=== PATIENT | male | born 1970 | race Hispanic/Latino ===

== ENCOUNTER 2022-11-07 08:35 | Emergency (ER) | payer SELFPAY ==
[2022-11-07] MEDS ORDERED: ASPIRIN 81 MG CHEWABLE TABLET ONE (09:24)
[2022-11-07 09:45] LABS: Hematocrit 44.7 % (39.6-49.0); Lymphocytes % 39.2 % (15.3-44.8); MCV 90.1 fL (80-100); MPV 8.9 fL (7.6-11.3); RBC Red Blood Cell Count 4.96 M/uL (4.33-5.43)
[2022-11-07 10:02] LABS: ALT/SGPT 27 U/L (16-61); AST/SGOT 15 U/L (15-37); Albumin 3.5 g/dL (3.4-5.0); Alkaline Phosphatase 131 U/L (45-117); BUN Blood Urea Nitrogen 8 mg/dL (7-18); Bicarbonate 25 mEq/L (21-32); Bilirubin Total 0.3 mg/dL (0.2-1.0); Glomerular Filtration Rate 108 ml/min (=/>90); Glucose Level 107 mg/dL (74-106); Magnesium 2.3 mg/dL (1.6-2.4); NT PRO-BNP 11 pg/mL (<125); Potassium 3.8 mEq/L (3.5-5.1); Protein, Total 6.7 g/dL (6.4-8.2); Sodium Level 142 mEq/L (136-145); Troponin High Sensitivity 3.3 pg/mL (<58.9)
[2022-11-07 10:04] LABS: Bilirubin Direct < 0.1 mg/dL (0-0.2); Bilirubin Indirect, Calculated ND mg/dL (0.2-0.8)
--- NOTE | 2022-11-07 10:12 | RAD REPORT ---
EXAM DESCRIPTION: Alissa Single View11/07/2022 10:04 am CLINICAL HISTORY: Chest pain COMPARISON: none FINDINGS: The lungs appear clear of acute infiltrate. The heart is normal size IMPRESSION: No acute abnormalities displayed
--- NOTE | 2022-11-07 12:28 | ER ---
Nurse's Notes [facility] Name: Esau Gross Age: 51 yrs Sex: Male : 1970 Arrival Date: 11/07/2022 Time: 08:35 Bed 7 Private MD: Diagnosis: Chest pain, unspecified Presentation: 11/07 08:58 Chief complaint: Patient states: chest pain X 1 month, got bad last night, he went to [facility] in [place] and they did an EKG and told him to come to ER. Coronavirus screen: At this time, the client does not indicate any symptoms associated with coronavirus-19. Ebola Screen: Patient negative for fever greater than or equal to 101.5 degrees Fahrenheit, and additional compatible Ebola Virus Disease symptoms Patient denies exposure to infectious person. Patient denies travel to an Ebola-affected area in the 21 days before illness onset. No symptoms or risks identified at this time. Initial Sepsis Screen: Does the patient meet any 2 criteria? No. Patient's initial sepsis screen is negative. Does the patient have a suspected source of infection? No. Patient's initial sepsis screen is negative. Risk Assessment: Do you want to hurt yourself or someone else? Patient reports no desire to harm self or others. Onset of symptoms was September 2022. 08:58 Method Of Arrival: Ambulatory 08:58 Acuity: DIXIE 3 iw Historical: - Allergies: 09:00 No Known Allergies; iw - Home Meds: 09:00 None [Active]; iw - PMHx: 09:00 None; iw - PSHx: 09:00 wrist; iw - Immunization history:: Adult Immunizations up to date. - Social history:: Smoking status: Patient reports the use of cigarette tobacco products, smokes one-half pack cigarettes per day. - Family history:: not pertinent. Screenin:35 [facility] ED Fall Risk Assessment (Adult) History of falling in the last 3 months, ap3 including since admission No falls in past 3 months (0 pts). Abuse screen: Denies threats or abuse. Nutritional screening: No deficits noted. Tuberculosis screening: No symptoms or risk factors identified. Assessment: 09:35 General: Appears in no apparent distress. Behavior is calm, cooperative, appropriate ap3 for age. Pain: Complains of pain in chest Pain currently is 2 out of 10 on a pain scale. at worst was 7 out of 10 on a pain scale. Neuro: Level of Consciousness is awake, alert, obeys commands, Oriented to person, place, time, situation, Appropriate for age. Cardiovascular: Reports chest pain, Patient's skin is warm and dry. Respiratory: Airway is patent Respiratory effort is even, unlabored, Respiratory pattern is regular, symmetrical. Vital Signs: 08:58 Pulse 68; Resp 16; Temp 97.2; Pulse Ox 97% on R/A; Pain 2/10; iw 09:37 Pulse 73; Pulse Ox 98% on R/A; ap3 09:40 BP 105 / 80; ap3 11:50 BP 101 / 85; Pulse 59; Pulse Ox 100% on R/A; ap3 12:57 BP 96 / 73; Pulse 57; Pulse Ox 100% on R/A; ap3 08:58 Pain Scale: Adult iw ED Course: 08:38 Patient arrived in ED. am2 08:41 Aditi Ball FNP-C is PHCP. kb 08:41 Augusto Diallo MD is Attending Physician. kb 08:46 Amari Garcia MD is Attending Physician. rt 08:59 Jaylyn Tate, RANDY is Primary Nurse. ap3 08:59 Inserted saline lock: 20 gauge in right antecubital area, using aseptic technique. ap3 Blood collected. 09:00 Triage completed. iw 09:00 Arm band placed on. iw 09:35 Initial lab(s) drawn, by me, sent to lab. ap3 09:36 Patient has correct armband on for positive identification. Bed in low position. Call ap3 light in reach. Side rails up X 1. Adult w/ patient. court monitor on. Pulse ox on. NIBP on. 10:06 XRAY Chest (1 view) In Process Unspecified. EDMS 12:26 Chacho Broussard MD is Referral Physician. rt 13:07 No provider procedures requiring assistance completed. IV discontinued, intact, ap3 bleeding controlled, No redness/swelling at site. Pressure dressing applied. 13:08 Provided Education on: discharge educatioin. ap3 Administered Medications: 09:30 Drug: Aspirin PO Chewable Tablet 324 mg Route: PO; ap3 12:58 Follow up: Response: No adverse reaction ap3 Medication: 09:36 VIS not applicable for this client. ap3 Outcome: 12:27 Discharge ordered by . rt 13:07 Discharged to home ambulatory, with family. ap3 13:07 Condition: good 13:07 Discharge instructions given to patient, family, Instructed on discharge instructions, follow up and referral plans. Demonstrated understanding of instructions, follow-up care. 13:08 Patient left the ED. ap3 Signatures: Dispatcher [employer] EDIN Aditi Ball, DIORAMA MODEL MAKER-C DIORAMA MODEL MAKER-Ckb Vijaya Car, Jaylyn Robert RN amJaylyn Up RN RN ap3 Amari Garcia MD MD rt
--- NOTE | 2022-11-07 12:28 | EDPHYS ---
Physician Documentation [facility] Name: Esau Gross Age: 51 yrs Sex: Male : 1970 Arrival Date: 11/07/2022 Time: 08:35 Bed 7 Private MD: ED Physician Amari Garcia HPI: 11/07 09:16 This 51 yrs old Male presents to ER via Ambulatory with complaints of Abnormal rt Lab Results - EKG. 09:16 Patient presents to the ED with intermittent chest pain for the past month. Patient rt states that it radiates to his left arm, he has a sensation of ants crawling up his arm. He has associated shortness of breath, mild cough, nonproductive as well as a dizziness. It does get worse with exertion. Patient states that the symptoms have worsened yesterday, he went to a clinic where he was told that he had an abnormal EKG. Patient states that at some more mild pains today, none currently. Denies other acute complaints at this time, symptoms are moderate in severity, no other aggravating or alleviating factors.. Historical: - Allergies: 09:00 No Known Allergies; iw - Home Meds: 09:00 None [Active]; iw - PMHx: 09:00 None; iw - PSHx: 09:00 wrist; iw - Immunization history:: Adult Immunizations up to date. - Social history:: Smoking status: Patient reports the use of cigarette tobacco products, smokes one-half pack cigarettes per day. - Family history:: not pertinent. ROS: 09:16 Constitutional: Negative for fever, chills, and weight loss, Eyes: Negative for injury, rt pain, redness, and discharge, Abdomen/GI: Negative for abdominal pain, nausea, vomiting, diarrhea, and constipation. 09:16 MS/Extremity: Negative for injury and deformity, Skin: Negative for injury, rash, and discoloration, Neuro: Negative for headache, weakness, numbness, tingling, and seizure, Psych: Negative for depression, anxiety, suicide ideation, homicidal ideation, and hallucinations. 09:16 Cardiovascular: Positive for chest pain, Negative for edema. 09:16 Respiratory: Positive for cough, shortness of breath. 09:16 Neuro: Positive for near syncope, Negative for near syncope. Exam: 09:16 Constitutional: This is a well developed, well nourished patient who is awake, alert, rt and in no acute distress. Head/Face: Normocephalic, atraumatic. Chest/axilla: Normal chest wall appearance and motion. Nontender with no deformity. No lesions are appreciated. Cardiovascular: Regular rate and rhythm with a normal S1 and S2. No gallops, murmurs, or rubs. Normal PMI, no JVD. No pulse deficits. Respiratory: Lungs have equal breath sounds bilaterally, clear to auscultation and percussion. No rales, rhonchi or wheezes noted. No increased work of breathing, no retractions or nasal flaring. Abdomen/GI: Soft, non-tender, with normal bowel sounds. No distension or tympany. No guarding or rebound. No evidence of tenderness throughout. Skin: Warm, dry with normal turgor. Normal color with no rashes, no lesions, and no evidence of cellulitis. MS/ Extremity: Pulses equal, no cyanosis. Neurovascular intact. Full, normal range of motion. Neuro: Awake and alert, GCS 15, oriented to person, place, time, and situation. Cranial nerves II-XII grossly intact. Motor strength 5/5 in all extremities. Sensory grossly intact. Cerebellar exam normal. Normal gait. Psych: Awake, alert, with orientation to person, place and time. Behavior, mood, and affect are within normal limits. 09:16 ECG was reviewed by the Attending Physician. Vital Signs: 08:58 Pulse 68; Resp 16; Temp 97.2; Pulse Ox 97% on R/A; Pain 2/10; iw 09:37 Pulse 73; Pulse Ox 98% on R/A; ap3 09:40 BP 105 / 80; ap3 11:50 BP 101 / 85; Pulse 59; Pulse Ox 100% on R/A; ap3 12:57 BP 96 / 73; Pulse 57; Pulse Ox 100% on R/A; ap3 08:58 Pain Scale: Adult iw MDM: 08:41 Patient medically screened. kb 12:27 Differential diagnosis: Nonspecific chest pain, acute coronary syndrome, pneumonia, rt pneumothorax, pulmonary embolism. HEART Score: History: Moderately Suspicious (1), ECG: Normal (0), Age: > 45 and < 65 years (1), Risk Factors: 1 or 2 risk factors (1), Troponin: < or = 1 x Normal Limit (0), Total Score = 3. The patient was given aspirin in the Emergency Department. Data reviewed: vital signs, nurses notes, lab test result(s), EKG, radiologic studies. Consideration of Admission/Observation Escalation of care including admission/observation considered. Low heart score, 2 negative troponins, patient is desirous of discharge, believe this is appropriate at this time patient to follow-up for outpatient testing. Return precautions discussed with patient, he was instructed to take 81 mg of aspirin daily. He is PE RC negative, low risk for pulmonary embolism, CT angiogram is not indicated. Stable for outpatient care.. Counseling: I had a detailed discussion with the patient and/or guardian regarding: the historical points, exam findings, and any diagnostic results supporting the discharge/admit diagnosis, lab results, radiology results, the need for outpatient follow up, smoking cessation. 11/07 09:38 Order name: Basic Metabolic Panel; Complete Time: 10:32 EDMS 11/07 09:38 Order name: Liver (Hepatic) Function; Complete Time: 10:32 EDMS 11/07 09:38 Order name: Troponin High Sensitivity; Complete Time: 10:32 EDMS 11/07 09:38 Order name: NT PRO-BNP; Complete Time: 10:32 EDMS 11/07 09:38 Order name: Magnesium; Complete Time: 10:32 EDMS 11/07 09:38 Order name: CBC with Automated Diff; Complete Time: 10:32 EDMS 11/07 11:39 Order name: Troponin High Sensitivity; Complete Time: 12:24 rt 11/07 09:12 Order name: XRAY Chest (1 view); Complete Time: 10:32 rt 11/07 09:12 Order name: EKG; Complete Time: 09:40 rt 11/07 09:12 Order name: Cardiac monitoring; Complete Time: 09:13 rt 11/07 09:12 Order name: EKG - Nurse/Tech; Complete Time: 09:13 rt 11/07 09:12 Order name: IV Saline Lock; Complete Time: : rt 11/07 09:12 Order name: Labs collected and sent; Complete Time: 09:13 rt 11/07 09:12 Order name: O2 Per Protocol; Complete Time: 09: rt 11/07 09:12 Order name: O2 Sat Monitoring; Complete Time: 09:13 rt EC:16 Rate is 63 beats/min. Rhythm is regular, Normal Sinus Rhythm with No ectopy. QRS [place] rt is Normal. GA interval is normal. QRS interval is normal. QT interval is normal. No Q waves. T waves are Normal. No ST changes noted. Interpreted by me. Administered Medications: 09:30 Drug: Aspirin PO Chewable Tablet 324 mg Route: PO; ap3 12:58 Follow up: Response: No adverse reaction ap3 Disposition Summary: 11/07/22 12:27 Discharge Ordered Location: Home rt Problem: new rt Symptoms: are resolved rt Condition: Stable rt Diagnosis - Chest pain, unspecified rt Followup: rt - With: Chacho Broussard MD - When: 2 - 3 days - Reason: Followup: rt - With: Emergency Department - When: - Reason: Worsening of condition Discharge Instructions: - Discharge Summary Sheet rt - Nonspecific Chest Pain, Adult rt Forms: - Medication Reconciliation Form rt - Thank You Letter rt - Antibiotic Education rt - Prescription Opioid Use rt - Patient Portal Instructions rt Signatures: Dispatcher [employer] EDAditi Garza, HU-C GROUP HOME COUNSELOR-CkVijaya Agrawal, RN RANDY iw Jaylyn Tate RN RN ap3 Amari Garcia MD MD rt Corrections: (The following items were deleted from the chart) 09:46 09:35 Chest Single View ordered. EDMS EDMS 12:03 09:40 BASIC METABOLIC PANEL+C.LAB.BRZ ordered. EDMS EDMS 12:03 09:40 CBC+H.LAB.BRZ ordered. EDMS EDMS 12:03 09:40 HEPATIC FUNCTION+C.LAB.BRZ ordered. EDMS EDMS 12:03 09:40 MAGNESIUM+C.LAB.BRZ ordered. EDMS EDMS 12:03 09:40 PROBNP+C.LAB.BRZ ordered. EDMS EDMS 12:03 09:40 Troponin High Sensitivity+C.LAB.BRZ ordered. EDMS EDMS 12:03 11:39 Troponin High Sensitivity+C.LAB.BRZ ordered. EDMS EDMS
[2022-11-07 13:30] VITALS: TEMP 97.2
[2022-11-07 13:35] VITALS: O2SAT 100
[2022-11-07 13:36] VITALS: BP 96/73
--- NOTE | 2022-11-09 17:43 | EKG ---
Test Date: 2022-11-07 Test Time: 08:52:53 Stationary Engineer Supervisor: GAYE MEASUREMENT RESULTS: Intervals: Rate: 63 MN: 142 QRSD: 80 QT: 388 QTc: 397 Meade: P: 21 MN: 142 QRS: 19 T: 18 INTERPRETIVE STATEMENTS: Normal sinus rhythm Normal ECG No previous ECG available for comparison Electronically Signed On 11-09-22 17:36:07 CDT by Chacho Broussard
== END 2022-11-07 13:08 | disposition home or self-care (01) ==
LOC: ER 08:35
DX: R07.9 Chest pain, unspecified (principal)
CPT/HCPCS: 36415; 71045; 80048; 80076; 83735; 83880; 84484; 85025; 93005; 99284

== ENCOUNTER 2024-03-05 15:22 | Emergency (ER) | payer SELFPAY ==
[2024-03-05] MEDS ORDERED: MORPHINE 4 MG/ML SYR ONE (16:06)
[2024-03-05] MEDS ORDERED: NA CHLORIDE 0.9% 1,000 ML ONE (16:06)
[2024-03-05] MEDS ORDERED: FAMOTIDINE 20 MG/2 ML VIAL IV ONE (16:06)
[2024-03-05] MEDS ORDERED: ONDANSETRON 4 MG/2 ML VIAL ONE (16:06)
[2024-03-05 16:12] LABS: Absolute Basophils 0.1 K/uL (0-0.5); Absolute Eosinophils 0.1 K/uL (0-0.5); Absolute Lymphocytes (CBC) 1.7 K/uL (0.7-4.9); Absolute Monocytes 0.8 K/uL (0.1-1.3); Absolute Neutrophil 10.3 K/uL (1.8-8.0); Basophils % 0.5 % (0-1.3); Eosinophils % 0.6 % (0-4.4); Hematocrit 50.3 % (39.6-49.0); Hemoglobin 16.8 g/dL (13.6-17.9); Lymphocytes % 13.2 % (15.3-44.8); MCH 30.1 pg (27.0-35.0); MCHC 33.5 g/dL (32.0-36.0); MCV 89.8 fL (80-100); MPV 8.4 fL (7.6-11.3); Monocytes % 6.5 % (3.3-12.3); Neutrophils % 79.2 % (41.7-73.7); Platelets 293 thou/uL (152-406)
[2024-03-05 16:17] LABS: Specific Gravity 1.027 (1.005-1.030); Sqamous Epithelial <5 /HPF (None Seen); Urine Bacteria <20 /HPF (<20); Urine Bilirubin 2+ (Negative); Urine Blood 2+ (Negative); Urine Clarity Clear (Clear); Urine Color Dark-Yellow (Yellow); Urine Culture Reflex Order NOT NEEDED; Urine Glucose NEGATIVE (Negative); Urine Ketones 4+ (Over) (Negative); Urine Microscopic Reflex YN ORDER UMIC; Urine Mucus Slight /HPF (None Seen); Urine Nitrite NEGATIVE (Negative); Urine Protein 1+ (Negative); Urine Urobilinogen 1+ (Normal); Urine WBC <5 /HPF (<5)
[2024-03-05 16:18] LABS: PT Prothrombin Time 19.2 SECONDS (9.4-12.5); Protime INR 1.74
[2024-03-05] MEDS ORDERED: PIPERACIL/TAZO 3.375 GM VIAL IV ONE (16:29)
[2024-03-05] MEDS ORDERED: NA CHLORIDE 0.9% 100 ML ONE (16:29)
[2024-03-05 16:47] LABS: Albumin 3.6 g/dL (3.4-5.0); Albumin/Globulin Ratio 0.9 (1.1-1.8); Anion Gap 13.3 mEq/L (5.0-15.0); Bilirubin Total 5.8 mg/dL (0.2-1.0); Potassium 3.3 mEq/L (3.5-5.1); Protein, Total 7.6 g/dL (6.4-8.2)
--- NOTE | 2024-03-05 17:35 | RAD REPORT ---
EXAMINATION: CT ABDOMEN AND PELVIS WITH CONTRAST CLINICAL INDICATION: Abdominal pain TECHNIQUE: CT abdomen and pelvis was performed, after the administration of 100 cc Isovue-300.. Sagit brandy and coronal reconstructions were obtained. One or more of the following dose reduction techniques were used: Automated exposure control, adjustment of the mA and kV according to patient si ze, and iterative reconstruction. Unless otherwise specified, incidental findings do not require dedicated imaging follow-up. [id number]. Oral contrast was not given which limits evaluation of bowel and appendix. COMPARISON: .None FINDINGS: Gallbladder wall is mildly thickened. A small gallstone is present. Mild dilatation common bile duct. 3 mm stone within the common bile duct. Mild dilatation intrahepatic biliary tree. Mild gallbladder distention Spleen, pancreas, adrenals and kidneys appear unremarkable No evidence of diverticulitis. Normal appendix. Bladder wall appears mildly thickened. : IMPRESSION: Cholelithiasis. Thickened gallbladder wall probably indicates cholecystitis. Choledocholithiasis. Dilatation of the intra and extrahepatic biliary tree Mild gallbladder distention Bladder wall appears mildly thickened which may indicate inflammation or incomplete distention
--- NOTE | 2024-03-05 17:38 | RAD REPORT ---
EXAM: Right upper quadrant ultrasound. CLINICAL HISTORY: Abdominal pain COMPARISON: CT March 05, 2024 FINDINGS: A small gallstone is better seen on CT scan same date. Gallbladder is distended. 5 x 1.6 cm soft tissue structure is present within the gallbladder. Gallbladder wall is thickened. Mild dilatation intra and extrahepatic biliary tree. IMPRESSION: 5 x 1.6 cm soft tissue structure within the bladder probably unusual appearing sludge. A mass is cons idered less likely. Cholelithiasis Mildly thickened gallbladder wall probably cholecystitis Dilatation of the intra and extrahepatic biliary tree
--- NOTE | 2024-03-05 17:45 | ER ---
Nurse's Notes [facility] Name: Esau Gross Age: 53 yrs Sex: Male : 1970 Arrival Date: 03/05/2024 Time: 15:22 Bed 16 Private MD: Diagnosis: Calculus of gallbladder and bile duct with acute cholecystitis with obstruction-CHOLEDOCOLITHIASIS;Epigastric abdominal tenderness;Elevated white blood cell count;Hypokalemia;Abnormal coagulation profile Presentation: 03/05 15:48 Chief complaint: Patient states: RUQ abdominal pain that radiates to back onset Monday. cm10 Pt reports blurred vision onset Monday. Pt noted to have yellowing of scleras in triage. Coronavirus screen: Client denies travel out of the [place] in the last 14 days. Ebola Screen: Patient denies travel to an Ebola-affected area in the 21 days before illness onset. No symptoms or risks identified at this time. Initial Sepsis Screen: Does the patient meet any 2 criteria? HR > 90 bpm. Does the patient have a suspected source of infection? No. Patient's initial sepsis screen is negative. Risk Assessment: Do you want to hurt yourself or someone else? Patient reports no desire to harm self or others. Onset of symptoms was March 01, 2024. 15:48 Method Of Arrival: Ambulatory cm10 15:48 Acuity: DIXIE 3 cm10 Triage Assessment: 15:49 General: Appears in no apparent distress. uncomfortable, Behavior is calm, cooperative. cm10 EENT: Sclera/Cornea Yellow. Neuro: No deficits noted. Level of Consciousness is awake, alert, obeys commands, Oriented to person, place, time, situation, Appropriate for age Reports blurred vision since 03/02. Respiratory: No deficits noted. Airway is patent Respiratory effort is even, unlabored, Respiratory pattern is regular, symmetrical. Historical: - Allergies: 15:49 No Known Allergies; cm10 - Home Meds: 15:49 None [Active]; cm10 - PMHx: 15:49 None; cm10 - PSHx: 15:49 wrist; cm10 - Immunization history:: Adult Immunizations unknown. - Infectious Disease History:: Denies. - Social history:: Smoking status: Patient reports the use of cigarette tobacco products, smokes one-half pack cigarettes per day, Patient uses alcohol, weekly. - Family history:: not pertinent. Screenin:16 [facility] ED Fall Risk Assessment (Adult) History of falling in the last 3 months, ph including since admission No falls in past 3 months (0 pts) Confusion or Disorientation No (0 pts) Intoxicated or Sedated Yes (3 pts) Impaired Gait No (0 pts) Mobility Assist Device Used No (0 pt) Altered Elimination No (0 pt) Score/Fall Risk Level 0 - 2 = Low Risk Oriented to surroundings, Maintained a safe environment, Hourly rounding (assess needs \T\ fall precautionary measures) done, Used ambulatory aids as needed (educated on \T\ assisted with). Abuse screen: Denies threats or abuse. Denies injuries from another. Nutritional screening: No deficits noted. Tuberculosis screening: No symptoms or risk factors identified. Assessment: 17:14 General: Appears in no apparent distress. comfortable, Behavior is calm, cooperative, ph appropriate for age. Pain: Complains of pain in right upper quadrant and epigastric area. Neuro: Level of Consciousness is awake, alert, obeys commands, Oriented to person, place, time, situation. Cardiovascular: Capillary refill < 3 seconds in bilateral fingers Patient's skin is warm and dry. Respiratory: Airway is patent Respiratory effort is even, unlabored, Respiratory pattern is regular, symmetrical. GI: Abdomen is non-distended, Bowel sounds present X 4 quads. Abd is soft X 4 quads. : No signs and/or symptoms were reported regarding the genitourinary system. Urine is tea colored. EENT: Sclera/Cornea jaundiced. Derm: Skin is intact, Skin is jaundiced. Musculoskeletal: Circulation, motion, and sensation intact. Range of motion: intact in all extremities. 19:05 General: Appears in no apparent distress. comfortable, Behavior is calm, cooperative, rg5 appropriate for age. 19:05 Pain: Complains of pain in abdomen Pain currently is 5 out of 10 on a pain scale. rg5 Quality of pain is described as aching. Neuro: Level of Consciousness is awake, alert, obeys commands. Cardiovascular: Patient's skin is warm and dry. Respiratory: Airway is patent Respiratory effort is even, unlabored, Respiratory pattern is regular, symmetrical. GI: Abdomen is round non-distended, Bowel sounds present X 4 quads. Abd is soft. : No signs and/or symptoms were reported regarding the genitourinary system. EENT: No signs and/or symptoms were reported regarding the EENT system. Derm: Skin is intact, Skin is normal. Musculoskeletal: Circulation, motion, and sensation intact. Range of motion:. 20:00 Reassessment: No changes from previously documented assessment. Patient and/or family rg5 updated on plan of care and expected duration. Pain level reassessed. Vital Signs: 15:48 BP 131 / 97; Pulse 105; Resp 18; Temp 97.9; Pulse Ox 96% on R/A; Weight 71.21 kg; Pain cm10 7/10; 17:13 BP 119 / 73; Pulse 89; Resp 18; Pulse Ox 95% on R/A; ph 19:05 BP 122 / 72; Pulse 81; Resp 18; Pulse Ox 96% on R/A; ph 20:00 BP 121 / 73; Pulse 85; Resp 17; Temp 98; Pulse Ox 100% on R/A; Pain 4/10; rg5 15:48 Pain Scale: Adult cm10 20:00 Pain Scale: Adult rg5 ED Course: 15:27 Patient arrived in ED. mg5 15:27 Luis A Costello MD is Attending Physician. [facility] 15:36 Michelle Taveras, RANDY is Primary Nurse. ph 15:49 Triage completed. cm10 15:49 Arm band placed on right wrist. Patient placed in an exam room, on a stretcher. cm10 15:51 Radiology exam delayed due to lab results not completed at this time. (BUN/Creatinine) nj IV insertion attempt and/or patient not having appropriate IV at this time. 15:55 Initial lab(s) drawn, by ct, sent to lab. Inserted saline lock: 20 gauge in left ph antecubital area, using aseptic technique. Blood collected. Flushed with 10 mL NS. 16:57 US Abdomen Limited In Process Unspecified. EDMS 17:16 Patient has correct armband on for positive identification. Placed in gown. Bed in low ph position. Side rails up X2. Pulse ox on. NIBP on. Door closed. Noise minimized. Warm blanket given. Pillow given. 17:19 CT Abd/Pelvis - IV Contrast Only In Process Unspecified. EDMS 20:36 Provided Education on: post er care done. rg5 20:36 No provider procedures requiring assistance completed. rg5 20:36 Patient transferred, IV remains in place. rg5 Administered Medications: 16:15 Drug: Famotidine IVP 20 mg IVP once; dilute with 10 mL 0.9% NaCl; give over 2 minutes ph Route: IVP; Site: left antecubital; 18:04 Follow up: Response: No adverse reaction ph 16:15 Drug: Ondansetron IVP 4 mg IVP once; over 2 minutes Route: IVP; Site: left antecubital; ph 18:04 Follow up: Response: No adverse reaction ph 16:15 Drug: NS 0.9% IV 1000 ml IV at 1 bolus Per protocol; to be given as a bolus over 60 ph minutes Route: IV; Rate: 1 bolus; Site: left antecubital; 18:04 Follow up: Response: No adverse reaction; IV Status: Completed infusion; IV Intake: ph 1000ml 16:16 Drug: morphine IVP or IV 4 mg IVP once over 4 mins Route: IVP; Infused Over: 4 mins; ph Site: left antecubital; 18:04 Follow up: Response: No adverse reaction ph 18:03 Drug: Piperacillin-Tazobactam IVPB 3.375 grams IVPB once over 60 mins; (mix in NS 100 ph mL) Route: IVPB; Infused Over: 60 mins; Site: left antecubital; 18:49 Follow up: Response: No adverse reaction; IV Status: Completed infusion ph 19:19 Drug: NS 0.9% with KCl IV 20 mEq/L 1000 ml IV at 125 ml/hr continuous Route: IV; Rate: rg5 125 ml/hr; Site: left antecubital; 20:37 Follow up: IV Status: Infusion continued upon transfer; IV Intake: 150ml rg5 19:41 Drug: Phytonadione Sub-Q 10 mg Sub-Q once Route: Sub-Q; Site: left upper arm; rg5 20:37 Follow up: Response: No adverse reaction rg5 Medication: 17:16 VIS not applicable for this client. ph Intake: 18:04 IV: 1000ml; Total: 1000ml. ph 20:37 IV: 150ml; Total: 1150ml. rg5 Outcome: 17:45 ER care complete, transfer ordered by MD. taylor 20:36 Transferred by ground EMS to [facility], [facility], rg5 20:36 Condition: stable 20:36 Discharge instructions given to EMS, 20:37 Patient left the ED. rg5 Signatures: Dispatcher [employer] Luis A Blackman MD MD cha Hall, Patricia, RN RN [facility], Olga Sanchez RN RN cm10 Melissa Rizvi 5 Carlos A Rutherford RN RN rg5
--- NOTE | 2024-03-05 17:46 | EDPHYS ---
Physician Documentation [facility] Name: Esau Gross Age: 53 yrs Sex: Male : 1970 Arrival Date: 03/05/2024 Time: 15:22 Bed 16 Private MD: ED Physician Luis A Costello HPI: 03/05 16:11 This 53 yrs old Male presents to ER via Ambulatory with complaints of claudia Abdominal Pain. 16:11 The patient presents with abdominal pain in the epigastric area, in the upper abdomen, claudia abdominal distention in the upper abdomen, in the lower abdomen. Onset: The symptoms/episode began/occurred 3 day(s) ago. The symptoms radiate to back. Associated signs and symptoms: Pertinent positives: nausea and vomiting. The symptoms are described as crampy. Modifying factors: The symptoms are alleviated by nothing, the symptoms are aggravated by pressure. Severity of pain: At its worst the pain was moderate in the emergency department the pain is unchanged. The patient has not experienced similar symptoms in the past. Historical: - Allergies: 15:49 No Known Allergies; cm10 - Home Meds: 15:49 None [Active]; cm10 - PMHx: 15:49 None; cm10 - PSHx: 15:49 wrist; cm10 - Immunization history:: Adult Immunizations unknown. - Infectious Disease History:: Denies. - Social history:: Smoking status: Patient reports the use of cigarette tobacco products, smokes one-half pack cigarettes per day, Patient uses alcohol, weekly. - Family history:: not pertinent. ROS: 16:11 Constitutional: Negative for fever, chills, and weight loss, Eyes: Negative for injury, claudia pain, redness, and discharge, ENT: Negative for injury, pain, and discharge, Neck: Negative for injury, pain, and swelling, Cardiovascular: Negative for chest pain, palpitations, and edema, Respiratory: Negative for shortness of breath, cough, wheezing, and pleuritic chest pain, Back: Negative for injury and pain, : Negative for injury, bleeding, discharge, and swelling, MS/Extremity: Negative for injury and deformity, Neuro: Negative for headache, weakness, numbness, tingling, and seizure, Psych: Negative for depression, anxiety, suicide ideation, homicidal ideation, and hallucinations, Allergy/Immunology: Negative for hives, rash, and allergies, Endocrine: Negative for neck swelling, polydipsia, polyuria, polyphagia, and marked weight changes, Hematologic/Lymphatic: Negative for swollen nodes, abnormal bleeding, and unusual bruising, 16:11 Abdomen/GI: Positive for abdominal pain, nausea and vomiting, abdominal cramps, abdominal distension, of the epigastric area, right upper quadrant and left upper quadrant, 16:11 Skin: Positive for jaundice, Exam: 16:11 Constitutional: This is a well developed, well nourished patient who is awake, alert, claudia and in no acute distress. Head/Face: Normocephalic, atraumatic. ENT: Nares patent. No nasal discharge, no septal abnormalities noted. Tympanic membranes are normal and external auditory canals are clear. Oropharynx with no redness, swelling, or masses, exudates, or evidence of obstruction, uvula midline. Mucous membranes moist. Neck: Trachea midline, no thyromegaly or masses palpated, and no cervical lymphadenopathy. Supple, full range of motion without nuchal rigidity, or vertebral point tenderness. No Meningismus. Chest/axilla: Normal chest wall appearance and motion. Nontender with no deformity. No lesions are appreciated. Respiratory: Lungs have equal breath sounds bilaterally, clear to auscultation and percussion. No rales, rhonchi or wheezes noted. No increased work of breathing, no retractions or nasal flaring. Back: No spinal tenderness. No costovertebral tenderness. Full range of motion. Male : Normal genitalia with no discharge or lesions. MS/ Extremity: Pulses equal, no cyanosis. Neurovascular intact. Full, normal range of motion. Neuro: Awake and alert, GCS 15, oriented to person, place, time, and situation. Cranial nerves II-XII grossly intact. Motor strength 5/5 in all extremities. Sensory grossly intact. Cerebellar exam normal. Normal gait. Psych: Awake, alert, with orientation to person, place and time. Behavior, mood, and affect are within normal limits. 16:11 Eyes: Sclera: icterus, 16:11 Cardiovascular: Rate: tachycardic, actual rate is 105 bpm, Rhythm: regular, Edema: is not appreciated, JVD: is not appreciated, 16:11 Abdomen/GI: Inspection: abdomen appears normal, Bowel sounds: normal, Palpation: moderate abdominal tenderness, in the epigastric area, right upper quadrant and left upper quadrant, 16:11 Skin: Appearance: Color: jaundiced, Temperature: normal temperature, Moisture: normal moisture, petechiae, not noted, 16:45 ECG was reviewed by the Attending Physician. [facility] Vital Signs: 15:48 BP 131 / 97; Pulse 105; Resp 18; Temp 97.9; Pulse Ox 96% on R/A; Weight 71.21 kg; Pain cm10 7/10; 17:13 BP 119 / 73; Pulse 89; Resp 18; Pulse Ox 95% on R/A; ph 19:05 BP 122 / 72; Pulse 81; Resp 18; Pulse Ox 96% on R/A; ph 20:00 BP 121 / 73; Pulse 85; Resp 17; Temp 98; Pulse Ox 100% on R/A; Pain 4/10; rg5 15:48 Pain Scale: Adult cm10 20:00 Pain Scale: Adult rg5 MDM: 15:28 Medical Screening Exam initiated [facility] 15:46 Medical Screening Exam initiated [facility] 16:15 Differential diagnosis: cholecystitis, Cholelithiasis, gastritis, gastroesophageal claudia reflux disease, non-specific abd pain, pancreatitis, Peptic Ulcer Disease, Ureterolithiasis, urinary tract infection. Data reviewed: vital signs, nurses notes, lab test result(s), EKG, radiologic studies, plain films. Consideration of Admission/Observation Patient was admitted/placed on observation. Escalation of care including admission/observation considered. I considered the following discharge prescriptions or medication management in the emergency department Medications were administered in the Emergency Department. See MAR. Independent interpretation of the following test(s) in the Emergency Department EKG: See my EKG interpretation above. 03/05 15:32 Order name: CBC with Diff; Complete Time: 16:16 [facility] 03/05 15:32 Order name: CMP; Complete Time: 17:20 [facility] 03/05 15:32 Order name: Lipase; Complete Time: 17:20 [facility] 03/05 15:32 Order name: Urinalysis w/ reflexes; Complete Time: 17:20 [facility] 03/05 15:47 Order name: PT-INR; Complete Time: 17:20 [facility] 03/05 15:47 Order name: AMMONIA; Complete Time: 17:20 [facility] 03/05 15:32 Order name: CT Abd/Pelvis - IV Contrast Only; Complete Time: 18:25 [facility] 03/05 15:47 Order name: US Abdomen Limited; Complete Time: 18:25 [facility] 03/05 16:16 Order name: EKG; Complete Time: 16:16 [facility] 03/05 15:32 Order name: IV Saline Lock; Complete Time: 16:15 [facility] 03/05 15:32 Order name: Labs collected and sent; Complete Time: 16:15 [facility] 03/05 16:16 Order name: EKG - Nurse/Tech; Complete Time: 17:40 [facility] 03/05 16:16 Order name: NPO; Complete Time: 16:19 [facility] EC:45 Rate is 95 beats/min. Rhythm is regular. QRS Herman is Normal. AR interval is normal. QRS claudia interval is normal. QT interval is normal. No Q waves. T waves are Peaked. No ST changes noted. Clinical impression: NSR w/ Non-specific ST/T Changes and No evidence of ischemia. Interpreted by me. Reviewed by me. Administered Medications: 16:15 Drug: Famotidine IVP 20 mg IVP once; dilute with 10 mL 0.9% NaCl; give over 2 minutes ph Route: IVP; Site: left antecubital; 18:04 Follow up: Response: No adverse reaction ph 16:15 Drug: Ondansetron IVP 4 mg IVP once; over 2 minutes Route: IVP; Site: left antecubital; ph 18:04 Follow up: Response: No adverse reaction ph 16:15 Drug: NS 0.9% IV 1000 ml IV at 1 bolus Per protocol; to be given as a bolus over 60 ph minutes Route: IV; Rate: 1 bolus; Site: left antecubital; 18:04 Follow up: Response: No adverse reaction; IV Status: Completed infusion; IV Intake: ph 1000ml 16:16 Drug: morphine IVP or IV 4 mg IVP once over 4 mins Route: IVP; Infused Over: 4 mins; ph Site: left antecubital; 18:04 Follow up: Response: No adverse reaction ph 18:03 Drug: Piperacillin-Tazobactam IVPB 3.375 grams IVPB once over 60 mins; (mix in NS 100 ph mL) Route: IVPB; Infused Over: 60 mins; Site: left antecubital; 18:49 Follow up: Response: No adverse reaction; IV Status: Completed infusion ph 19:19 Drug: NS 0.9% with KCl IV 20 mEq/L 1000 ml IV at 125 ml/hr continuous Route: IV; Rate: rg5 125 ml/hr; Site: left antecubital; 20:37 Follow up: IV Status: Infusion continued upon transfer; IV Intake: 150ml rg5 19:41 Drug: Phytonadione Sub-Q 10 mg Sub-Q once Route: Sub-Q; Site: left upper arm; rg5 20:37 Follow up: Response: No adverse reaction rg5 Disposition Summary: 03/05/24 17:45 Transfer Ordered Notes: Transfer Location: [facility] claudia Reason: Higher level of care claudia Condition: Fair claudia Problem: new claudia Symptoms: have improved claudia Accepting Physician: to [facility](03/05/24 20:37) rg5 Diagnosis - Calculus of gallbladder and bile duct with acute cholecystitis with obstruction - claudia CHOLEDOCOLITHIASIS - Epigastric abdominal tenderness claudia - Elevated white blood cell count claudia - Hypokalemia claudia - Abnormal coagulation profile claudia Forms: - Medication Reconciliation Form claudia - SBAR form claudia Signatures: Dispatcher [employer] EDMS Luis A Costello MD MD cha Hall, Patricia, RN RN Olga Marie, RN RN cm10 Carlos A Rutherford, RN RN rg5 Corrections: (The following items were deleted from the chart) 15:33 15:33 CBC+H.LAB.BRZ ordered. EDMS EDMS 15:33 15:33 COMPREHENSIVE METABOLIC PANEL+C.LAB.BRZ ordered. EDMS EDMS 15:33 15:33 LIPASE+C.LAB.BRZ ordered. EDMS EDMS 15:33 15:33 Urinalysis+U.LAB.BRZ ordered. EDMS EDMS 15:47 15:47 PROTIME (+INR)+COAG.LAB.BRZ ordered. EDMS EDMS 15:47 15:47 AMMONIA+C.LAB.BRZ ordered. EDMS EDMS 18:31 17:45 to [facility] claudia claudia 19:06 18:31 to [facility] claudia claudia 20:37 19:06 to [facility] claudia rg5
[2024-03-05] MEDS ORDERED: NS KCL 20MEQ 1,000 ML IV ONE (18:52)
[2024-03-05] MEDS ORDERED: VITAMIN K (ADULT) 10 MG/ML ONE (19:34)
[2024-03-06 03:08] VITALS: BP 121/73; TEMP 98; O2SAT 100
--- NOTE | 2024-03-06 11:32 | EKG ---
Test Date: 2024-03-05 Test Time: 16:41:10 [employer] Supervisor: RUY MEASUREMENT RESULTS: Intervals: Rate: 95 MN: 140 QRSD: 80 QT: 344 QTc: 432 [place]: P: 27 MN: 140 QRS: 4 T: 3 INTERPRETIVE STATEMENTS: Normal sinus rhythm Nonspecific T wave abnormality Abnormal ECG Compared to ECG 11/07/2022 08:52:53 T-wave abnormality now present Electronically Signed On 03-06-24 11:31:16 CAN PUSHER by Ignacio Haney
== END 2024-03-05 20:37 | disposition short-term general hospital (02) ==
LOC: ER 15:22
DX: K80.63 Calculus of gallbladder and bile duct with acute cholecystitis with obstruction (principal); E87.6 Hypokalemia; D72.829 Elevated white blood cell count, unspecified; R79.1 Abnormal coagulation profile; F17.210 Nicotine dependence, cigarettes, uncomplicated
CPT/HCPCS: 36415; 74177; 76705; 80053; 81001; 82140; 83690; 85025; 85610; 93005; 96361; 96365; 96372; 96375; 99285; J2405; J2543; J3430; J3480; J7030; Q9967